=== PATIENT | male | born 1955 | race Two or more races ===

== ENCOUNTER 2024-05-12 23:39 | Emergency (ER) | payer OTHER ==
[~2024-05-12] VITALS: Ht 177.8 cm; Wt 125.6 kg
[2024-05-13] MEDS ORDERED: LEVETIRACETAM (500MG) 500 MG/5 ML VIAL IV ONE (00:30)
[2024-05-13 00:33] LABS: BASOPHILS % (AUTO) 0.4 % (0.0-2.0); EOSINOPHILS # (AUTO) 0.1 K/uL (0.0-0.7); EOSINOPHILS % (AUTO) 1.7 % (0.0-6.0); HEMATOCRIT 39 % (39-51); HEMOGLOBIN 13.1 g/dL (13.5-17.5); LYMPHOCYTES # (AUTO) 1.4 K/uL (0.8-4.8); LYMPHOCYTES % (AUTO) 18.8 % (20.0-44.0); MEAN CORPUSCULAR HEMOGLOBIN 29 PG (26.0-33.0); MEAN CORPUSCULAR HGB CONC 34 g/dl (31.0-36.0); MEAN CORPUSCULAR VOLUME 85 fL (80-96); MONOCYTES # (AUTO) 0.5 K/uL (0.1-1.30); NEUTROPHILS # (AUTO) 5.3 K/uL (1.8-8.9); NEUTROPHILS % (AUTO) 72.1 % (43.0-81.0); PLATELET COUNT (AUTO) 237 K/uL (150-450); RED BLOOD CELL COUNT(AUTO) 4.56 MIL/uL (4.5-6.0); RED CELL DISTRIBUTION WIDTH 13.9 % (11.5-15.0); WHITE BLOOD COUNT (AUTO) 7.4 K/uL (4.3-11.0)
[2024-05-13] MEDS: LEVETIRACETAM (500MG) 1,000 MG in PREMIX 90 EA IV SCH (00:41)
[2024-05-13 00:48] LABS: CALCIUM, SERUM 9.1 mg/dL (8.5-10.1); POTASSIUM 3.9 mmol/L (3.5-5.1)
[2024-05-13 00:54] LABS: LACTIC ACID 1.4 mmol/L (0.4-2.0)
[2024-05-13] MEDS ORDERED: LEVE500T9 PO (01:27)
[2024-05-13 01:43] VITALS: BP 145/86; TEMP 98; O2SAT 98
== END 2024-05-13 01:44 | disposition home or self-care (01) ==
LOC: ER 23:42
DX: R56.9 Unspecified convulsions (principal)
CPT/HCPCS: 99285; 82962; 96365; 70450; 85025; 80048; 83605; 80177; J1953